=== PATIENT | female | born 1975 | race Caucasian/White ===

== ENCOUNTER 2017-04-21 09:54 | Day surgery (SDC) | payer MEDICAID ==
[~2017-04-21 09:54] MED LIST: CEFAZOLIN 1 GM INJ; LIDOCAINE 2% (SDV) 5 ML INJ
[2017-04-21 11:01] LABS: ADD MAN DIFF? NO
[2017-04-21 11:18] LABS: BASOPHILS % 0.5 % (0.0-2.0); EOSINOPHILS # 0.2 10^3/ul (0.0-0.5); EOSINOPHILS % 2.4 % (0.0-7.0); HEMATOCRIT 36.2 % (37.0-47.0); HEMOGLOBIN 12.1 g/dl (12.0-16.0); LYMPHOCYTES # 2.7 10^3/ul (0.8-2.9); LYMPHOCYTES % 41.7 % (15.0-51.0); MEAN CORPUSCULAR HEMOGLOBIN 29.7 pg (29.0-33.0); MEAN CORPUSCULAR HGB CONC 33.4 g/dl (32.0-37.0); MEAN CORPUSCULAR VOLUME 88.7 fl (82.0-101.0); MONOCYTE # 0.5 10^3/ul (0.3-0.9); MONOCYTES % 7.2 % (0.0-11.0); NEUTROPHIL # 3.2 10^3/ul (1.6-7.5); PLATELET COUNT 203 10^3/UL (140-415); RED BLOOD COUNT 4.08 10^6/ul (4.20-5.40); RED CELL DISTRIBUTION WIDTH 13.4 % (11.5-14.5)
[2017-04-21 11:18] LABS: WHITE BLOOD COUNT 6.6 10^3/ul (4.8-10.8)
[2017-04-21] MEDS ORDERED: FENTAnyl 50 MCG/ML VIAL (11:29)
[2017-04-21] MEDS ORDERED: PROPOFOL 20 ML (11:29)
[2017-04-21] MEDS ORDERED: DEXAMETHASONE 4 MG/ML 1 ML INJ (11:30)
[2017-04-21] MEDS ORDERED: ROCURONIUM 50 MG INJ (11:30)
[2017-04-21] MEDS ORDERED: SUGAMMADEX SODIUM 200 MG/2 ML VIAL IV (11:31)
[2017-04-21] MEDS ORDERED: ONDANSETRON 4 MG INJ (11:31)
[2017-04-21 11:36] LABS: INR 1.02; PROTIME 13.5 Sec (11.9-14.9); PT RATIO 1.1
[2017-04-21 11:37] LABS: ALANINE AMINOTRANSFERASE 29 IU/L (13-69); ALBUMIN 4.2 g/dl (3.3-4.9); ALKALINE PHOSPHATASE 141 IU/L (42-121); ANION GAP 12 (8-16); ASPARTATE AMINO TRANSFERASE 25 IU/L (15-46); BILIRUBIN,INDIRECT 0.3 mg/dl (0-1.1); BILIRUBIN,TOTAL 0.3 mg/dl (0.2-1.3); CARBON DIOXIDE 27 mmol/L (21-31); CHLORIDE 106 mmol/L (97-110); GLUCOSE 90 mg/dl (70-220); PARTIAL THROMBOPLASTIN TIME 33.2 Sec (25.0-35.0); TOTAL PROTEIN 7.7 g/dl (6.1-8.1)
[2017-04-21 11:44] LABS: BLOOD UREA NITROGEN 14 mg/dl (7-20); CALCIUM 9.4 mg/dl (8.4-10.2); CREATININE 0.57 mg/dl (0.44-1.00); POTASSIUM 3.9 mmol/L (3.5-5.1); SODIUM 141 mmol/L (135-144)
[2017-04-21] MEDS ORDERED: EPHEDrine SULFATE 50 MG/5 ML SYG (13:42)
[2017-04-21] MEDS: BUPIVACAINE 0.5% (SDV) 30 ML INJ (13:59)
[2017-04-21] MEDS ORDERED: KETOROLAC 30 MG INJ (14:24)
[2017-04-21] MEDS ORDERED: HYDROmorphONE (0.2 MG/ML) 10ML SYG IV (14:27)
[2017-04-21] MEDS ORDERED: FENTAnyl 50 MCG/ML VIAL IV (14:30)
[2017-04-21] MEDS: HYDROmorphONE (0.2 MG/ML) 10ML SYG IV ×4 (14:33→15:31)
[2017-04-21] MEDS: KETOROLAC 30 MG INJ IV (14:34)
[2017-04-21] MEDS: ONDANSETRON 4 MG INJ IV (14:35)
[2017-04-21] MEDS: HYDROCODONE/APAP (5/325) TAB PO (16:48)
== END 2017-04-21 17:10 | disposition home or self-care (01) ==
LOC: SDS 09:54
DX: Z30.2 Encounter for sterilization (principal)
CPT/HCPCS: 58600; 80053; 84703; 85025; 85610; 85730; 88302